=== PATIENT | male | born 1980 | race Caucasian/White ===

== ENCOUNTER 2017-06-08 14:41 | Day surgery (SDC) | payer OTHER ==
[~2017-06-08] VITALS: Ht 154.9 cm; Wt 98.9 kg
[2017-06-08 15:11] VITALS: Ht 154.9 cm; Wt 98.9 kg
[2017-06-08] MEDS ORDERED: LIDOCAINE 2% (SDV) 5 ML INJ ONE (16:22)
[2017-06-08] MEDS ORDERED: PROPOFOL 60 ML ONE (16:22)
--- NOTE | 2017-06-08 17:05 | OPPN ---
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
[2017-06-08 17:30] VITALS: BP 131/76; PULSE 64; RESP 18
--- NOTE | 2017-06-08 19:53 | GILP ---
DATE OF PROCEDURE: 06/08/2017 PROCEDURE PERFORMED: 1. Esophagogastroduodenoscopy and biopsy. 2. Colonoscopy and biopsy. SURGEON: Wali Cuenca MD. PREOPERATIVE DIAGNOSES: 1. Upper and lower abdominal pain. 2. Change in bowel habits. POSTOPERATIVE DIAGNOSES: 1. Gastritis with erosions. 2. Gastric mucosal biopsies were taken for Helicobacter pylori test. 3. Colonoscopy all the way to the anastomotic area. 4. Two small transverse colon polyps were removed using biopsy forceps. 5. Internal hemorrhoids. INDICATION: Mr. Rg Whitman is a 36-year-old male patient who had upper and lower abdominal pain not responding to therapy. The patient also noticed change in the bowel habits. So the patient was scheduled for endoscopy and colonoscopy for further evaluation. The procedures and possible complications were well explained to the patient. He understood and consented to the procedures. DESCRIPTION OF PROCEDURE: Under the influence of anesthesia, the gastroscope was carefully introduced into the esophagus and under direct vision, it was advanced to the stomach, into the pylorus, into the duodenal bulb, and descending duodenum. FINDINGS: Esophagus, mucosa was normal. Stomach, the patient had gastritis with erosions. Gastric mucosal biopsies were taken for Helicobacter pylori test. Duodenum was normal. The colonoscope was carefully introduced in the rectum. Under direct vision, it was advanced all the way to the anastomotic area. Findings, the patient had 2 small transverse colon polyps and they were removed using the biopsy forceps. He had internal hemorrhoids. He tolerated the procedure very well, and there was no complication from the procedures. At the end of procedures he was awake with stable vital signs and he was discharged home in the care of his family. IMPRESSION: Please see postop diagnoses. PLAN: 1. Omeprazole 40 mg by mouth in morning. 2. Bentyl 10 mg by mouth 3 times a day as needed for pain. 3. Await histopathology reports. 4. Next screening colonoscopy in 10 years. Dictated By: MD GREG Lanier/[email or web address]/[email or web address] /Document#: [id number]
== END 2017-06-08 17:48 | disposition home or self-care (01) ==
LOC: GIL 14:41
PROVIDERS: ATTEND Internal Medicine Gastroenterology
DX: R19.4 Change in bowel habit (principal); D12.3 Benign neoplasm of transverse colon; K29.60 Other gastritis without bleeding; K64.8 Other hemorrhoids; Z87.891 Personal history of nicotine dependence
CPT/HCPCS: 43239; 45380; 87081; 88305; Z7610